=== PATIENT | female | born 1990 | race Caucasian/White ===

== ENCOUNTER 2024-10-01 10:45 | Outpatient (CLI) | payer BC, SELFPAY ==
--- OUTSIDE RECORDS SUMMARY | 2024-10-04 13:02 | XMS_ITS | Clinical Summary ---
Author Organization [facility] Address [address] [place] [id number] Phone [email or web address] Care Team Providers Care Global Manager Name Role Phone Unavailable Primary Care Provider Unavailabl e Allergies No known active allergies Medications Vit-DSS-Fe Cbn-FA ( AD PO) Take by mouth. Active Active Problems Problem Noted Date Diagnosed Date Pain in both wrists 12/25/2017 Overview (12/25/2017): s/p left TFCC debridement by Dr. Gastelum Social History Tobacco Use Types Packs/Day Years Used Date Smoking Tobacco: Never Smokeless Tobacco: Never Intimate Partner Violence Answer Date R ecorded Insults You Not on file 05/31/2020 Threatens You Not on file 05/31/2020 Screams at You Not on file 05/31/2020 Physically Hurt Not on file 05/31/2020 Intimate Partner Violence Score Not on file 05/31/2020 Stress Answer Date Recorded Stress in your Life Not on file 12/22/2023 Dealing with Stress 3 12/22/2023 Comments Unknown Sex and Gender Information Value Date Recorded Sex Assigned at Not on file Legal Sex Female 9:56 AM CDT Gender Identity Not on file Sexual Orientation Not on file Last Filed Vital Signs Vital Sign Reading Time Taken Comments Blood Pressure 125/67 03/04/2018 4:17 PM EST Pulse 78 03/04/2018 4:17 PM EST Temperature 36.6 C (97.8 F) 03/04/2018 4:17 PM EST Respiratory Rate 14 03/04/2018 4:17 PM EST Oxygen Saturation 98% 03/04/2018 4:17 PM EST Inhaled Oxygen Concentration - - Weight 81.2 kg (179 lb) 01/30/2018 4:17 PM EST Height 160 cm (5' 3 ) 12/25/2017 3:01 PM EST Body Mass Index 31.71 12/25/2017 3:01 PM EST Plan of Treatment Health Maintenance Due Date Last Done Comments Cervical Cancer Screening Combo 1990 Dental Cleaning/Exam 1990 HIV Screening 1990 HPV / Cotest 1990 Hepatitis C Screening 1990 Pap Testing 1990 HPV Immunization (1 - 2-dose series) 2001 Annual Preventive Exam 2008 Hep B Infection Screening - Triple Screen 2008 Hepatitis B Immunization (1 of 3 - 19+ 3-dose series) 2009 Tetanus Diphtheria and Pertu ssis Immunization (1 - Tdap) 2009 Covid-19 Immunization (1 - 2 ) 10/19/2023 Influenza Immunization (#1) 2024 HIB Immunization Aged Out No longer e ligible based on patient's age to complete this topic Hepatitis A Immunization Aged Out No longer eligible based on patient's age to complete this topic Pneumococcal: Ped (0 to 5 Yr s) and At-Risk Member (6 to 64 Yrs) Aged Out No longer e ligible based on patient's age to complete this topic Polio Immunization Aged Out No longer eligible based on patient's age to complete this topic Varicella Immunization Aged Out No lo nger eligible based on patient's age to complete this topic [place] [address] [place] [address] [place] [facility] Address: [address] [place] [address] [id number] [id number] [place] [address]
--- OUTSIDE RECORDS SUMMARY | 2024-10-04 13:02 | XMS_ITS | Clinical Summary ---
Author Organization [facility] Address [address] [place] [address] Care Team Providers Care Fuel Cell Builder Name Role Phone Simone Adkins MD Primary Care Provider [phone] Allergies No known active allergies Medications Vit-Fe Fumarate-FA ( Vitamin) 27-0.8 MG tablet Take by mouth. Active acetaminophen (TYLENOL) 325 MG tablet Take 2 tablets by mouth Every 6 (Six) Hours. 03/21/2020 Active ibuprofen (ADVIL,MOTRIN) 600 MG tablet Take 1 tablet by mouth Every 6 (Six) Hours. 30 tablet 03/21/2020 10:18 AM EST 03/21/2020 Active Active Problems Problem Noted Date Diagnosed Date follow-up 04/11/2020 Normal labor 03/19/2020 Previous section 02/29/2020 Resolved Problems Problem Noted Date Diagnosed Date Resolved Date Breech presentation of fetus 06/15/2018 06/18/2018 Family History Medical History Relation Name Comments Hypertension Father Heart disease Maternal Grandfather Basal cell carcinoma Maternal Grandmother Diabetes Maternal Grandmother Basal cell carcinoma Mother Bipolar disorder Mother Depression Mother Hypertension Mother Cancer Other FAMILY HISTORY COLORECTAL - aunt and uncle Relation Name Status Comments Father Maternal Grandfather Maternal Grandmother Mother Other FAMILY HISTORY Social History Tobacco Use Types Packs/Day Years Used Date Smoking Tobacco: Former Cigarettes Q uit: 09/13/2017 Smokeless Tobacco: Never Tobacco Cessation:Counseling Given: No Comments:was vaping before ; smoked very little cigarettes prior to Alcohol Use Standard Drinks/Week Comments No 0 (1 standard drink = 0.6 oz pur e alcohol) AUDIT-C Answer Date Recorded Q1: How often do you have a drink containing alc ohol? Never 03/19/2020 Average Number of Drinks Not on file 021 Frequency of Binge Drinking Not on file 02/19 PHQ-2 Answer Date Recorded Retired Total Score 0 05/02/2020 [place] Depression Scale Answer Date Recorded [place] Depression Scale Total 6 03/20/2020 The thought of harming myself has occurred to me . Never 03/20/2020 Abuse Screen Answer Date Recorded Unsafe at Home or Work/School Not on file Feels Threatened by Someone? Not on file 01/2023 Does Anyone Keep You from Co ntacting Others or Doint Things Outside the Home? Not on file 11/28/2022 Physical Sign of Abuse Present Not on file 1 Housing Stability Answer Date Recorded Current Living Arrangements Not on file 11/17 Potentially Unsafe Housing Conditions Not on ros e 11/28/2022 Family and Community Support Answer Montez e Recorded Help with Day-to-Day Activities Not on file 11/28/2022 Lonely or Isolated Not on file 11/28/2022 Employment Answer Date Recorded Do you want help finding or keeping work or a petros b? Not on file 11/28/2022 Disabilities Answer Date Recorded Concentrating, Remembering, or Making Decisions Difficulty Not on file 11/28/2022 Doing Errands Independently Difficulty Not on fi le 11/28/2022 Education Answer Date Recorded Help with school or training? Not on file Preferred Language Not on file 11/28/2022 Comments No Sex and Gender Information Value Date Recorded Sex Assigned at Not on file Legal Sex Female 2:42 PM EDT Gender Identity Not on file Sexual Orientation Not on file Occupation Industry Job Start Date Job End Date HOMEMAKER Not on file Not on file Not on file Last Filed Vital Signs Vital Sign Reading Time Taken Comments Blood Pressure 110/70 05/02/2020 3:42 PM EDT Pulse 65 03/21/2020 11:30 AM EST Temperature 36.7 C (98 F) 05/02/2020 3:42 PM EDT Respiratory Rate 18 03/21/2020 11:30 AM EST Oxygen Saturation 100% 03/19/2020 11:45 PM EST Inhaled Oxygen Concentration - - Weight 88.9 kg (196 lb) 05/02/2020 3:42 PM EDT Height 160 cm (5' 3 ) 03/19/2020 8:07 PM EST Body Mass Index 34.72 03/19/2020 8:07 PM EST Plan of Treatment Health Maintenance Due Date Last Done Comments Annual Gynecologic Pelvic an d Breast Exam 1990 TDAP/TD VACCINES (1 - Tdap) 2009 ANNUAL PHYSICAL 06/04/2018 COVID-19 Vaccine ( - 2023-2 5 season) 2023 INFLUENZA VACCINE 11/17/2024 HEPATITIS C SCREENING Completed 08/17/2019 Pneumococcal Vaccine 0-49 Aged Out No longer eligible based on patient's age to complete this topic Procedures Procedure Name Priority Date/Time Associated Diagnosis Comments HEPATITIS C ANTIBODY Routine 08/17/2019 from Last 3 Months or Most Recently Relevant to Health Maintenance Results * Hepatitis C Antibody (08/17/2019) External Hepatitis C Ab neg Blood Historical Provider LAB BLOOD ORDERABLES Reanna l Result from Last 3 Months or Most Recently Relevant to Health Maintenance Insurance [place] [employer] [employer] [id number] [facility] PPO Member Subscriber Plan / Payer (Ef fective 2016-Present) Name:Kirt Castillo Relation to Subscriber:Spouse Name:LOGAN CASTILLO Date of :1990 (Home) Address: [address] [place] [address] [address] [place] [address] Payer ID:[id number] (NAIC) Type:Not on file Address: [facility] [id number] [place] [id number] Advance Directives * CPR (Attempt to Resuscitate) (Latest Code Status on File) Date Activated Date Inactivated Comments 03/20/2020 12:29 AM 03/21/2020 8:40 PM Question Answer Comments Code Status (Patient has no pulse and is not breathing): CPR (Attempt to Resuscitate) Medical Interventions (Patie nt has pulse or is breathing): Full * CPR (Attempt to Resuscitate) Date Activated Date Inactivated Comments 03/19/2020 8:21 PM 03/20/2020 12:29 AM Question Answer Comments Code Status (Patient has no pulse and is not breathing): CPR (Attempt to Resuscitate) Medical Interventions (Patie nt has pulse or is breathing): Full * CPR (Attempt to Resuscitate) Date Activated Date Inactivated Comments 06/15/2018 10:53 AM 06/18/2018 4:06 PM Question Answer Comments Code Status (Patient has no pulse and is not breathing): CPR (Attempt to Resuscitate) Medical Interventions (Patie nt has pulse or is breathing): Full * CPR (Attempt to Resuscitate) Date Activated Date Inactivated Comments 06/15/2018 7:15 AM 06/15/2018 10:53 AM Question Answer Comments Code Status (Patient has no pulse and is not breathing): CPR (Attempt to Resuscitate) Medical Interventions (Patie nt has pulse or is breathing): Full Care Teams Fuel Cell Builder Relationship Specialty Start Date End Date Simone Adkins MD [address] [facility] [address] [place] [address] PCP - General Family Medicine 06/14/18
== END 2024-10-01 23:59 | disposition home or self-care (01) ==
LOC: LAB.DROPOF 10-04 12:59
PROVIDERS: PCP Obstetrics & Gynecology; Visit Provider Obstetrics & Gynecology
DX: B37.9 Candidiasis, unspecified (principal); N76.0 Acute vaginitis; B96.89 Other specified bacterial agents as the cause of diseases classified elsewhere
CPT/HCPCS: 87491; 87529; 87591; 87661; 87798; 87801

== ENCOUNTER 2025-01-04 08:26 | Outpatient (CLI) | payer BC, SELFPAY ==
--- OUTSIDE RECORDS SUMMARY | 2025-01-06 08:33 | XMS_ITS | Clinical Summary ---
Author Organization [facility] Address [address] [place] [address] Phone [email or web address] Care Team Providers Care Director Of Software Engineering Name Role Phone Unavailable Primary Care Provider [...] Dental Cleaning/Exam 1990 HIV Screening 1990 HPV only / HPV + Pap 1990 Hepatitis C Screening 1990 Pap only testing 1990 HPV Immunization (1 - 2-dose series) 2001 Annual Preventive Exam 2008 Hep B Infection Screening - Triple Screen 2008 Hepatitis B Immunization (1 of 3 - 19+ 3-dose series) 2009 Tetanus Diphtheria and Pertu ssis Immunization (1 - Tdap) 2009 Covid-19 Immunization (1 - 2 season) 2024 Influenza Immunization (#1) 2024 HIB Immunization Aged Out No longer e ligible based on patient's age to complete this topic Hepatitis A Immunization Aged Out No longer eligible based on patient's age to complete this topic Pneumococcal Immunization Aged Out No longer eligible based on patient's age to complete this topic Polio Immunization Aged Out No longer eligible based on patient's age to complete this topic Varicella Immunization Aged Out No lo nger eligible based on patient's age to complete this topic Insurance [id number] [place] [address]
--- OUTSIDE RECORDS SUMMARY | 2025-01-06 08:33 | XMS_ITS | Clinical Summary ---
Author Organization [facility] Address [address] [place] [address] Care Team Providers Care Sap Bw Developer Name Role Phone Simone Adkins MD Primary Care Provider [phone] Allergies No known active allergies Medications Vit-Fe [...] Date Recorded Retired Total Score 0 05/02/2020 [place] Depression Scale Answer Date Recorded [place] Depression Scale Total 6 03/20/2020 The thought [...] (1 - Tdap) 2009 ANNUAL PHYSICAL 06/04/2018 INFLUENZA VACCINE 09/17/2024 HEPATITIS C SCREENING Completed 08/17/2019 Pneumococcal Vaccine 0-49 Aged Out No longer eligible based on patient's age to complete this topic Procedures Procedure Name Priority Date/Time Associated Diagnosis Comments HEPATITIS C ANTIBODY Routine 08/17/2019 from Last 3 Months or Most Recently Relevant to Health Maintenance Results * Hepatitis C Antibody (08/17/2019) External Hepatitis C Ab neg Blood [facility] Provider LAB BLOOD ORDERABLES Reanna l Result from Last 3 Months or Most Recently Relevant to Health Maintenance Insurance [id number] PPO Advance Directives * CPR (Attempt to Resuscitate) [...] pulse or is breathing): Full Care Teams Sap Bw Developer Relationship Specialty Start Date End Date Simone Adkins MD [address] [address] PCP - General Family Medicine 06/14/18
== END 2025-01-04 23:59 ==
LOC: LAB.DROPOF 01-06 08:26
PROVIDERS: PCP Family Medicine; Visit Provider Nurse Practitioner
DX: J02.9 Acute pharyngitis, unspecified (principal)
CPT/HCPCS: 87070